=== PATIENT | female | born 1985 | race Caucasian/White ===

== ENCOUNTER 2024-06-05 14:25 | Emergency (ER) | payer BC, SELFPAY ==
--- NOTE | ~2024-06-05 | XR_ITS ---
3 VIEWS NASAL BONES Ordering provider: Kenzie Turner APRN History: . box fell onto face, RIGHT SIDE PAIN . Comparison: None. FINDINGS: No acute fracture. The nasal septum is midline. Soft tissues are normal. IMPRESSION: NO NASAL BONE FRACTURE. Reviewed, dictated and finalized at location A. ORDER EXPEDITER IMPRESSION: NO NASAL BONE FRACTURE.
[2024-06-05 14:35] VITALS: BP 133/81; PULSE 90; RESP 16; TEMP 37.1; O2SAT 100
--- NOTE | 2024-06-05 14:42 | ED_ITS ---
HPI - General Adult General Chief complaint: Wound/Laceration Stated complaint: Nose Injury Time Seen by Provider: 06/05/24 14:42 History of Present Illness HPI narrative: 39-year-old female presented for of nasal pain after injury 2 days ago. She states while at work large heavy box full of protein shakes fell directly onto her nose. She states pain and swelling is getting worse. Denies epistaxis or difficulty breathing. Has taken ibuprofen Related Data Home Medications ?Medication ?Instructions ?Recorded ?Confirmed ?Last Taken ?Type No Home Medications 06/05/24 Unknown History Allergies Allergy/AdvReac Type Severity Reaction Status Date / Time amoxicillin Allergy Unknown Unknown Verified 06/05/24 14:40 Review of Systems Review of Systems: CONSTITUTIONAL: Denies body aches, fever, chills, or sweats. EYES: Denies visual changes, bruising, swelling, redness, or discharge. ENT: Denies rhinorrhea, congestion, or epistaxis CARDIOVASCULAR: Denies chest pain, palpitations, or edema. RESPIRATORY: Denies dyspnea. GASTROINTESTINAL: Denies abdominal pain, nausea, vomiting, or diarrhea. SKIN: Denies wounds. MUSCULOSKELETAL: Denies back pain neck pain NEUROLOGIC: Denies headache Exam Narrative: GENERAL: well-appearing, no acute distress. EYES: conjunctivae clear ENT: Mucous membranes moist. Reports tenderness to nasal bridge with palpation. Nares clear, no apparent swelling or bruising, no epistaxis. TM pearly samuel with normal light reflex bilaterally; no tragal tenderness. Oropharynx erythematous without lesions. CHEST: Clear to auscultation, breath sounds equal. No respiratory distress, speaks in full sentences. HEART: Regular rate and rhythm. No murmur heard. SKIN: Warm, dry NEURO: Alert and oriented x3. Course Course Emergency Course: Patient is aware of diagnosis, understands and agrees to treatment plan. Anticipatory guidance given. Patient agrees to follow-up as directed and is aware of reasons to seek care at the emergency department. Portions of this record may have been created with voice recognition software Level of Care: Express Care Visit Vital Signs Vital signs: Vital Signs Temperature 98.8 F 06/05/24 14:35 Pulse Rate 90 06/05/24 14:35 Respiratory Rate 16 06/05/24 14:35 Blood Pressure 133/81 06/05/24 14:35 Pulse Oximetry 100 06/05/24 14:35 Oxygen Delivery Room Air 06/05/24 14:35 Temperature 98.8 F 06/05/24 14:35 Pulse Rate 90 06/05/24 14:35 Respiratory Rate 16 06/05/24 14:35 Blood Pressure 133/81 06/05/24 14:35 Pulse Oximetry 100 06/05/24 14:35 Oxygen Delivery Room Air 06/05/24 14:35 Medical Decision Making MDM Narrative Medical decision making narrative: Discussed physical exam findings and nasal xray. Advised supportive measures and signs/symptoms to go to the ER. Pt is appropriate for outpt treatment and f/u. Differential Diagnosis Differential Diagnosis: nasal fracture, contusion, abrasion Vital Signs Vital Signs: Vital Signs Temperature 98.8 F 06/05/24 14:35 Pulse Rate 90 06/05/24 14:35 Respiratory Rate 16 06/05/24 14:35 Blood Pressure 133/81 06/05/24 14:35 Pulse Oximetry 100 06/05/24 14:35 Oxygen Delivery Room Air 06/05/24 14:35 Temperature 98.8 F 06/05/24 14:35 Pulse Rate 90 06/05/24 14:35 Respiratory Rate 16 06/05/24 14:35 Blood Pressure 133/81 06/05/24 14:35 Pulse Oximetry 100 06/05/24 14:35 Oxygen Delivery Room Air 06/05/24 14:35 Discharge Plan Discharge Clinical Impression: Contusion of nose Patient Disposition: Home, Self-Care Condition: Stable Instructions: Nasal Fracture (ED) Additional Instructions: apply ice to bridge of nose for 10 minute intervals throughout the day Sleep using a humidifer Avoid trauma/nose blowing/sneezing Tylenol as needed for pain If you have a nosebleed: instill Afrin (oxymetazoline) at the onset of nosebleed then apply direct pressure to the bridge of the nose for 10 minutes (using c lamp if possible) leaning forward not tilting head backward Avoid NSAIDs (advil ibuprofen aleve motrin) Follow up with ENT, call tomorrow to schedule an appointment Follow up with your primary care provider in 1 week, call tomorrow to schedule an appointment Go to the ER for worsening symptoms or concerns Patient Language: Chinese Prescriptions: No Action No Home Medications Follow-up/Referrals: Fritz Prajapati MD [Physician] - PHYSICIAN,DIGESTER OPERATOR HELPER [Primary Care Provider] - Time of Disposition: 15:14
== END 2024-06-05 15:20 | disposition home or self-care (01) ==
PROVIDERS: Emergency Provider Nurse Practitioner Family
DX: S00.33XA Contusion of nose, initial encounter (principal); W22.8XXA Striking against or struck by other objects, initial encounter
CPT/HCPCS: 70160; 99203; G0463

== ENCOUNTER 2025-01-06 13:57 | Emergency (ER) | payer BC, SELFPAY ==
--- NOTE | 2025-01-06 14:02 | ED.FEMALEGU ---
HPI - Female Genitourinary General Chief complaint: Urogenital-Female Stated complaint: Urinary Problem Time Seen by Provider: 01/06/25 14:12 Source: patient and RN notes reviewed Mode of arrival: ambulatory Limitations: no limitations History of Present Illness HPI Narrative: 39-year-old female presents with concern for one-week history of lower abdominal discomfort urine frequency, urgency, hematuria. Reports a pressure in her lower abdomen when she needs to use the bathroom and low back ache. She denies fever, body aches, chills, sweats, nausea, vomiting. MD elicited complaint: UTI Related Data Allergies Allergy/AdvReac Type Severity Reaction Status Date / Time amoxicillin Allergy Unknown Unknown Verified 01/06/25 14:09 Review of Systems Review of Systems: CONSTITUTIONAL: Denies malaise, chills, sweats, or fever. CARDIOVASCULAR: Denies chest pain, palpitations, or edema. RESPIRATORY: Denies cough or dyspnea. GASTROINTESTINAL: Denies abdominal pain, nausea, vomiting, diarrhea GENITOURINARY: Reports dysuria, frequency, urgency, suprapubic pressure. Denies flank pain or hematuria. SKIN: Denies rash or itching. MUSCULOSKELETAL: Reports back discomfort. Denies myalgia. All systems reviewed & are unremarkable except as noted in HPI and below PMFSH Comments At time of signature, agree with nursing past medical, surgical, social and family history. There is no relevant family history pertinent to the presenting complaint Exam Narrative: GENERAL: Well-appearing, well-nourished, and in no acute distress. HEAD: Normocephalic. EYES: PERRLA, conjunctivae clear. NECK: Supple. No lymphadenopathy CHEST: Clear to auscultation. No respiratory distress. HEART: Regular rate and rhythm. ABDOMEN: Soft, nontender upon palpation, nondistended, no palpable or pulsatile masses, no guarding. No CVA tenderness SKIN: Warm, dry, no rash. NEURO: Alert and oriented x3. PSYCH: Normal mood and affect Course Course Emergency Course: Patient is aware of diagnosis, understands and agrees to treatment plan. Anticipatory guidance given. Patient agrees to follow-up as directed and is aware of reasons to seek care at the emergency department. Portions of this record may have been created with voice recognition software Level of Care: Express Care Visit Vital Signs Vital signs: Reviewed. MDM - Female Genitourinary MDM Narrative Medical decision making narrative: Exam findings and UA show no acute concerns or changes; patient is non-toxic appearing and is in no distress. Patient is appropriate for outpatient treatment and follow-up. Differential Diagnosis Differential diagnosis: Likely urinary tract infection and cystitis Critical Care Time Critical Care Time Critical Care Time: No Discharge Plan Discharge Clinical Impression: Symptoms of urinary tract infection Patient Disposition: Home Condition: Stable Instructions: Antibiotic Form, Urinary Tract Infection in Women (ED) Additional Instructions: We will send a urine culture to the lab; if the culture identifies an organism that the prescribed antibiotic will not treat, you will receive a phone call from an urgent care staff member and an appropriate antibiotic will be prescribed. -Your symptoms should begin to improve within a day of starting antibiotics. But you should finish all the antibiotic pills you get. Otherwise your infection might come back. -Also recommend: increase water intake. Tylenol/ibuprofen as needed for pain or fever -Follow-up with your primary care provider for urine recheck or seek ER visit if condition worsens with high fever, nausea, vomiting and severe back pain. Patient Language: Luxembourgish Prescriptions: New sulfamethoxazole-trimethoprim 800-160 mg tablet 1 tablet PO Q12H 7 Days Qty: 14 0RF Follow-up/Referrals: PHYSICIAN NOT ON STAFF,NONSTAFF [Primary Care Provider] - Time of Disposition: 14:21
[2025-01-06 14:03] VITALS: BP 140/77; PULSE 87; RESP 20; TEMP 37.1; O2SAT 100
--- OUTSIDE RECORDS SUMMARY | 2025-01-06 14:14 | XMS_ITS | Encounter Summary ---
Author Organization [facility] HealthCare Address [address] [facility] [place] [address] Phone Care Team Providers Care Voice Pathologist Name Role Phone Aliya Carina Rodriguez APRN, CNP Primary Care Provider [phone] Encounter Details Date Type Department Care Team (Late st Contact Info) Description 12/25/2024 Results Follow-Up [facility] [address] [place] [id number] Pina Blackmon APRN, CYBER ANALYST [address] [place] [address] PATHOLOGY SURGICAL Social History Tobacco Use Types Packs/Day Years Used Date Smoking Tobacco: Never Smokeless Tobacco: Never Comments:Second hand smoke Alcohol Use Standard Drinks/Week Comments Never 0 (1 standard drink = 0.6 oz pur e alcohol) PHQ-2 Answer Date Recorded Total Score - Questions 1-9 0 11/27 Social Connection and Isolation Panel Answer Date Recorded In a typical week, how many times do you talk on the phone with family, friends, or neighbors? More than three times a week 12/09/2024 How often do you get togethe r with friends or relatives? More than three times a week 12/09/2024 How often do you attend chur ch or amish services? Never 12/09/2024 Do you belong to any clubs o r organizations such as denominational groups, unions, fraternal or athletic groups, or school groups? Yes 12/09/2024 How often do you attend meet ings of the clubs or organizations you belong to? More than 4 times per year 12/09/2024 Are you , , di vorced, , never , or living with a partner? 12/09/2024 AUDIT-C Answer Date Recorded Q1: How often do you have a drink containing alcohol? Never 12/09/2024 Q2: How many drinks containi ng alcohol do you have on a typical day when you are drinking? Patient does not drink Q3: How often do you have si x or more drinks on one occasion? Never 12/09/2024 Overall Financial Resource Strain (CARDIA) Answe r Date Recorded How hard is it for you to pa y for the very basics like food, housing, medical care, and heating? Very hard 12/09/2024 [facility] - Occupational Stress Questionnaire Answer Date Recorded Do you feel stress - tense, restless, nervous, or anxious, or unable to sleep at night because your mind is troubled all the time - these days? Not at all 12/09/2024 Exercise Vital Sign Answer Date Recorde d On average, how many days pe r week do you engage in moderate to strenuous exercise (like a brisk walk)? 5 days On average, how many minutes do you engage in exercise at this level? Patient declined 12/09/2024 Hunger Vital Sign Answer Date Recorded Within the past 12 months, y ou worried that your food would run out before you got the money to buy more. Sometimes true Within the past 12 months, t he food you bought just didn't last and you didn't have money to get more. Never true PRAPARE - Transportation Answer Date Re corded In the past 12 months, has l ack of transportation kept you from medical appointments or from getting medications? No 11/26 In the past 12 months, has l ack of transportation kept you from meetings, work, or from getting things needed for daily living? No 12/09/2024 Housing Stability Vital Sign Answer Toni e Recorded In the last 12 months, was t here a time when you were not able to pay the mortgage or rent on time? Yes 12/09/2024 In the past 12 months, how m any times have you moved where you were living? 0 12/09/2024 At any time in the past [facility], were you homeless or living in a alf (including now)? No 12/09/2024 [facility] Utilities Answer Date Recorded In the past 12 months has e electric, gas, oil, or water company threatened to shut off services in your home? Yes 12/09/2024 Sexually Active Control Partners Comments Not Currently Abstinence Male Comments No Sex and Gender Information Value Date Recorded Sex Assigned at Not on file Legal Sex Female 10:27 PM CDT Gender Identity Not on file Sexual Orientation Not on file Occupation Industry Job Start Date Job End Date [employer] Not on file Not on file Not on file documented as of this encounter Plan of Treatment Upcoming Encounters Date Type Department Care Team (Late st Contact Info) Description 01/31/2025 9:00 AM CDT Office Visit [facility] - Obstetrics & Gynecology [facility] [address] [place] [address] Casandra Wetzel, KNOWLEDGE ARCHITECT, CYBER ANALYST [address] [place] [address] 02/13/2025 2:20 PM CDT Lab [facility] [address] [place] [phone] Discharge Disposition: Discharged to home or Selfcare 02/20/2025 2:00 PM CDT Initial Consult [facility] [address] [place] [address] Comfort Metz, REGAN [address] [place] [address] Discharge Disposition: Discharged to home or Selfcare 03/25/2025 3:00 PM CDT Office Visit [facility] Medical [facility] - Family Medicine [facility] [address] [place] [address] Charles Alvarado, KNOWLEDGE ARCHITECT, CYBER ANALYST [address] [facility] [address] [place] [address] documented as of this encounter Visit Diagnoses Not on filedocumented in this encounter Additional Health Concerns Assessment Noted Time PHQ-9 Depression Total Score: 0 12/17/19 2:42 PM CDT documented as of this encounter Care Teams Voice Pathologist Relationship Specialty Start Date End Date Aliya Carina Michael, KNOWLEDGE ARCHITECT, CYBER ANALYST 2 [facility] [place] [address] [address] PCP - General Advanced Practice Nurse 12/16/24 documented as of this encounter
--- OUTSIDE RECORDS SUMMARY | 2025-01-06 14:14 | XMS_ITS | Clinical Summary ---
Author Organization [facility] Address [address] [place] [address] Phone Care Team Providers Care Care Clinician Name Role Phone KimberlyCarina aparicio Michael RIOJAS CNP Primary Care Provider [phone] Allergies Active Allergy Reactions Criticality Noted Date Comments [place] Oil Hives,Itching,Swelli ng High 12/09/2024 Any almond anything Peanut oil Peanut anything also causing burning of her skin / blister in mouth Amoxicillin Rash,Swelling,Vomiti ng High 04/06/2019 Severe vomiting and throat swells Cashew Nut (Anacardium Occidentale) Skin Test Hives,Itching,Swelli ng High 12/09/2024 Peanut oil Peanut anything also causing burning of her skin / blister in mouth Cat Dander Runny Nose,Itching High 12/09/2024 Watery eyes Hazelnut (Filbert) Hives,Itching,Swelli ng High 12/09/2024 Hazelnut anything also causing burning of her skin / blister in mouth Peanut (Diagnostic) Hives,Itching,Swelli ng,Unknown High 04/12/2019 Peanut oil Peanut anything also causing burning of her skin / blister in mouth Peanut Oil Hives,Rash,Swelling High 04/12/2019 Peanut oil Peanut anything also causing burning of her skin / blister in mouth Juglans Hives,Rash,Itching High 12/09/2024 [place] anything also causing burning of her skin / blister in mouth Medications dicyclomine (BENTYL) 20 MG Tablet Take 1 Tablet by mouth every 6 hours. 30 Tablet 12/02/19 25 Active ondansetron (ZOFRAN-ODT) 4 MG TABLET DISPERSIBLE Take 1 Tablet by mouth every 8 hours as needed for Nausea - 1st line. 20 Tablet 12/02/19 25 Active methylPREDNISol one (MEDROL DOSPACK) 4 MG Tablet Therapy Pack Use as per instructions on package. 1 Tablet 12/27/19 25 Active albuterol (ProAir HFA) 108 (90 Base) MCG/ACT Aerosol SolutionIndicat ions:Cough take 2 Puffs by inhalation every 6 hours as needed for Wheezing. 1 Inhaler 02/07/20 20 025 Discontinu ed(Med List Clean Up) HYDROcodone-valery taminophen (NORCO) 5-325 MG TabletIndicatio ns:Dental abscess Take 1 Tab by mouth every 4 hours as needed for Mild or more severe pain. 12 Tab 06/25/19 21 025 Discontinu ed(Med List Clean Up) levoFLOXacin (LEVAQUIN) 500 MG Tablet Take 1 Tablet by mouth daily for 6 days. 6 Tablet 12/02/19 25 025 Active Problems Problem Noted Date Diagnosed Date Anemia 12/05/2024 Breast nodule 12/05/2024 Adrenal nodule 12/05/2024 Encounters Date Type Department Care Team Description 01/02/2025 2:00 PM CDT Clinical Support [facility] [address] [place] [phone] Pina Blackmon, ROOFING LABORER, EYE SPECIALIST Other iron deficiency anemia (Primary Dx) Discharge Disposition: Discharged to home or Selfcare 01/02/2025 Travel 12/30/2024 Telephone [facility] [address] [place] [phone] Pina Blackmon, BEULAH, EYE SPECIALIST 12/26/2024 1:00 PM CDT Clinical Support [facility] [address] [place] [phone] Pina Blackmon, ROOFING LABORER, EYE SPECIALIST Other iron deficiency anemia (Primary Dx) Discharge Disposition: Discharged to home or Selfcare 12/26/2024 11:45 AM CDT Office Visit [facility] [address] [place] [phone] Pina Blackmon, ROOFING LABORER, EYE SPECIALIST Other iron deficiency anemia (Primary Dx); Anemia, unspecified type Discharge Disposition: Discharged to home or Selfcare 12/26/2024 Travel 12/25/2024 Results Follow-Up [facility] [address] [place] [phone] Pina Blackmon, ROOFING LABORER, EYE SPECIALIST PATHOLOGY SURGICAL 12/25/2024 Telephone [facility] [address] [place] [phone] Tierra Carlos RN 12/19/2024 11:30 AM CDT Clinical Support [facility] [address] [place] [phone] Pina Blackmon, ROOFING LABORER, EYE SPECIALIST Other iron deficiency anemia (Primary Dx) Discharge Disposition: Discharged to home or Selfcare 12/19/2024 Documentation Only [facility] [address] [place] [phone] Tierra Carlos RN 12/19/2024 Travel 12/19/2024 Telephone [facility] [address] [place] [phone] Pina Blackmon APRN, EYE SPECIALIST 12/18/2024 Telephone [facility] [address] [place] [phone] Tierra Carlos RN 12/18/2024 Results Follow-Up [facility] Medical [facility] [address] [place] [address] Carina Pisano, ROOFING LABORER, EYE SPECIALIST THYROXINE (T4) FREE, TRIIODOTHYRININE (T3) FREE, LIPID PANEL, Additional followed-up results: 4 12/17/2024 Results Follow-Up [facility] [address] [place] [phone] Pina Blackmon APRN, DANILO MRI ABDOMEN W/O CONTRAST 12/17/2024 Telephone [facility] [address] [place] [phone] Pina Blackmon APRN, DANILO 12/16/2024 3:56 PM CDT - 12/16/2024 11:59 PM CDT Hospital Encounter [facility] MRI [address] [place] [phone] Pina Blackmon APRN, EYE SPECIALIST Discharge Disposition: Discharged to home or Selfcare 12/16/2024 2:30 PM CDT Office Visit [facility] Medical Group - Family [facility] [address] [place] [phone] Carina iPsano, BEULAH, EYE SPECIALIST Encounter for preventative adult health care exam with abnormal findings (Primary Dx); Colitis; Menorrhagia with irregular cycle; Iron deficiency anemia, unspecified iron deficiency anemia type; Allergy, initial encounter Discharge Disposition: Discharged to home or Selfcare 12/16/2024 Telephone [facility] [address] [place] [phone] Pina Blackmon APRN, DANILO 12/16/2024 Telephone [facility] Outpatient [address] [facility] [place] [address] Pina Blackmon APRN, EYE SPECIALIST Prior Authorization (/) 12/16/2024 Travel 12/12/2024 2:00 PM CDT Clinical Support [facility] [address] [place] [phone] Pina Blackmon APRN, DANILO Other iron deficiency anemia (Primary Dx) Discharge Disposition: Discharged to home or Selfcare 12/12/2024 Travel 12/09/2024 Telephone [facility] [address] [place] [phone] Tierra Carlos RN 12/09/2024 Telephone [facility] [address] [place] [phone] Oehl, August, ROOFING LABORER, EYE SPECIALIST 12/09/2024 [facility]phone [facility] [place] [phone] Oehl, August N, ROOFING LABORER, EYE SPECIALIST 12/06/2024 Telephone [facility] [address] [place] [phone] Tierra Carlos RN 12/05/2024 2:45 PM CDT Office Visit [facility] [address] [place] [phone] Pina Blackmon APRN, DANILO Breast nodule (Primary Dx); Adrenal nodule (HCC); Anemia, unspecified type Discharge Disposition: Discharged to home or Selfcare 12/05/2024 1:30 PM CDT Clinical Support [facility] [address] [place] [phone] Pina Blackmon APRN, DANILO Anemia, unspecified type Discharge Disposition: Discharged to home or Selfcare 12/05/2024 Transcribe Orders [facility] [address] [place] [address] [place] [address] Pina Blackmon APRN, DANILO Adrenal nodule (HCC) (Primary Dx) 12/05/2024 Results Follow-Up [facility] [address] [place] [phone] Pina Blackmon, ROOFING LABORER, EYE SPECIALIST IRON,TRANSFERN,CALC.TIB C,%SAT, FERRITIN, VITAMIN B12, FOLIC ACID (FOLATE) 12/05/2024 Travel 12/03/2024 Telephone [facility] [address] [place] [phone] Tierra Carlos RN 12/01/2024 6:27 PM CDT - 12/01/2024 10:31 PM CDT Emergency [facility] Emergency [address] [place] [phone] Jovanny Moulton DO Diarrhea Discharge Disposition: Discharged to home or Selfcare 12/01/2024 Travel from Last 3 Months Family History Medical History Relation Name Comments No Known Problems Brother Asthma Father Suhas Depression Father Suhas Heart Attack Father Suhas Age 50. Angina Heart Disease Father Suhas High Cholesterol Father Suhas Hypertension Father Suhas Rashes/Skin Problems Father Suhas Eczema Scoliosis Father Suhas Stroke Father Suhas Congestive Heart Failure Maternal Grandmother Laxmi Anemia Mother Carmen Breast Cancer Mother Carmen Cancer Mother Carmen Her2+ Diabetes Mother Carmen Rashes/Skin Problems Mother Carmen Eczema Heart Attack Paternal Grandfather Ran Age 50 Seizures Sister Ariella Relation Name Status Comments Brother Alive Father Suhas Alive Maternal Grandmother Laxmi Alive Mother Carmen Alive Paternal Grandfather Ran Alive Sister Ariella Alive Social History Tobacco Use Types Packs/Day Years Used Date Smoking Tobacco: Never Smokeless Tobacco: Never Tobacco Cessation:Counseling Given: Not Answered Comments:Second hand smoke Alcohol Use Standard Drinks/Week [...] week 12/09/2024 How often do you attend [facility] or latter-day services? Never 12/09/2024 Do you belong to any clubs o r organizations such as taoism groups, unions, fraternal or athletic groups, or [...] medical care, and heating? Very hard 12/09/2024 [facility] - Occup[facility] Stress [...] any time in the past 12 m [facility], were you homeless or living in a fpc (including now)? No 12/09/2024 [facility] Utilities Answer Date Recorded In the past 12 months has th e electric, gas, oil, or water company [...] file Not on file Not on file Last Filed Vital Signs Vital Sign Reading Time Taken Comments Blood Pressure 125/74 01/02/2025 2:10 PM CDT Pulse 89 01/02/2025 2:10 PM CDT Temperature 36.8 C (98.2 F) 01/02/2025 2:10 PM CDT Respiratory Rate 16 01/02/2025 2:10 PM CDT Oxygen Saturation 98% 01/02/2025 2:10 PM CDT Inhaled Oxygen Concentration - - Weight 65.6 kg (144 lb 9.6 oz) 12/16/2024 2:42 P M CDT Height 144.8 cm (4' 9) 12/26/2024 12:47 PM CDT Body Mass Index 31.29 12/16/2024 2:42 PM CDT Plan of Treatment Upcoming Encounters Date Type Department Care Team (Late st Contact Info) Description 01/31/2025 9:00 AM CDT Office Visit [facility] Medical Group - Obstetrics & Gynecology [facility] [address] [place] [phone] Casandra Wetzel, ROOFING LABORER, EYE SPECIALIST [address] [place] [address] 02/13/2025 2:20 PM CDT [facility] [place] [address] [place] [phone] Discharge Disposition: Discharged to home or Selfcare 02/20/2025 2:00 PM CDT Initial Consult [facility] [address] [place] [phone] Comfort Metz, PAC [address] [place] [address] Discharge Disposition: Discharged to home or Selfcare 03/25/2025 3:00 PM CDT Office Visit [facility] Medical Group - [facility] [address] [place] [address] Charles Alvarado APRN, EYE SPECIALIST [address] [address] Health Maintenance Due Date Last Done Comments Hepatitis C Virus (HCV) Screening 1985 TdaP Immunization 1985 Hepatitis B Immunization (1 of 3 - 19+ 3-dose series) 2004 Pap Smear 2006 Human Papillomavirus (HPV) Immunization (1 - 3-dose SCDM series) 2012 Cervical Cancer Screening (CCS) 2015 HPV/Cotest 2015 SARS-COV-2 Immunization ( season) 2024 Influenza Immunization (#1) 2025 Respiratory Syncytial Virus (RSV) Immunization (Adult) (1 - 1-dose 75+ series) 2060 Meningococcal Immunization (ACWY) Aged Out No longer eligible based on patient's age to complete this topic Pneumococcal Immunization Combined Aged Out No longer eligible based on patient's age to complete this topic Rotavirus Immunization Aged Out No lo nger eligible based on patient's age to complete this topic Procedures Procedure Name Priority Date/Time Associated Diagnosis Comments PATHOLOGY SURGICAL 12/23/2024 12:00 AM CDT BENITO US GUIDANCE AND CORE BREAST BIOPSY RIGHT Routine 12/23/2024 12:00 AM CDT Breast nodule MAMMOGRAM UNILATERAL GENERIC 12/23/2024 12:00 AM CDT [facility] DIAG BILATERAL DIGITAL W CAD W NIKITA Routine 12/17/2024 12:00 AM CDT Breast nodule US - CHEST 12/17/2024 12:00 AM CDT CBC WITH AUTO DIFFERENTIAL Routine 12/16/2024 4:26 PM CDT Encounter for preventative adult health care exam with abnormal findings THYROID SCREEN WITH REFLEX Routine 12/16/2024 4:26 PM CDT Encounter for preventative adult health care exam with abnormal findings VITAMIN D, 25 HYDROXY TOTAL Routine 12/16/2024 4:26 PM CDT Encounter for preventative adult health care exam with abnormal findings COMPLETE BLOOD COUNT (CBC) WITH DIFF Routine 12/16/2024 4:26 PM CDT Encounter for preventative adult health care exam with abnormal findings CMP (COMPREHENSIVE METABOLIC PANEL) Routine 12/16/2024 4:26 PM CDT Encounter for preventative adult health care exam with abnormal findings LIPID PANEL Routine 12/16/2024 4:26 PM CDT Encounter for preventative adult health care exam with abnormal findings TRIIODOTHYRININE (T3) FREE Routine 12/16/2024 4:26 PM CDT Encounter for preventative adult health care exam with abnormal findings THYROXINE (T4) FREE Routine 12/16/2024 4:26 PM CDT Encounter for preventative adult health care exam with abnormal findings THYROID SCREEN WITH REFLEX Routine 12/16/2024 4:26 PM CDT Encounter for preventative adult health care exam with abnormal findings MRI ABDOMEN W/O CONTRAST Routine 12/16/2024 4:19 PM CDT Adrenal nodule (HCC) UR TEST QUAL Routine 12/16/2024 3:44 PM CDT Adrenal nodule (HCC) FOLIC ACID (FOLATE) Routine 12/05/2024 3:49 PM CDT Anemia, unspecified type FERRITIN Routine 12/05/2024 3:49 PM CDT Anemia, unspecified type VITAMIN B12 Routine 12/05/2024 3:49 PM CDT Anemia, unspecified type IRON,TRANSFERN,CALC.T IBC,%SAT Routine 12/05/2024 3:49 PM CDT Anemia, unspecified type CT ABDOMEN PELVIS W/ CONTRAST Stat with Interpretation 12/01/2024 8:39 PM CDT URINALYSIS REFLEX IF INDICATED BY ABNORMAL RESULTS STAT 12/01/2024 6:58 PM CDT HUMAN CHORIONIC GONADOTROPIN SCRN SERUM STAT 12/01/2024 6:58 PM CDT RSV,SARS-COV-2,INFLUE NZA A&B BY PCR STAT 12/01/2024 6:30 PM CDT CBC WITH AUTO DIFFERENTIAL STAT 12/01/2024 6:25 PM CDT LIPASE STAT 12/01/2024 6:25 PM CDT COMPLETE BLOOD COUNT (CBC) WITH DIFF STAT 12/01/2024 6:25 PM CDT CMP (COMPREHENSIVE METABOLIC PANEL) STAT 12/01/2024 6:25 PM CDT from Last 3 Months Results * MAMMOGRAM UNILATERAL GENERIC (12/23/2024 12:00 AM CDT) 12/23/2024 us Pina Blackmon ROOFING LABORER, EYE SPECIALIST IMG MAMMO ORDERABLES F inal Result SCAN * PATHOLOGY SURGICAL (12/23/2024 12:00 AM CDT) 12/23/2024 Result [facility] us Pina Blackmon APRN, CNP PATHOLOGY/CYTOLOGY ORD ERABLES Final Result Performing Organization Address [facility] Co de Phone Number SCAN * [facility] US GUIDANCE AND CORE BREAST BIOPSY RIGHT (12/23/2024 12:00 AM CDT) Anatomical Region Laterality Modality breast Right Ultrasound 12/23/2024 Result Mary Pina Blackmon APRN, CNP IMG MAMMO ORDERABLES F inal Result * US - CHEST (12/17/2024 12:00 AM CDT) 12/17/2024 Result Mary Pina Blackmon APRN, CNP IMG US ORDERABLES Jackelin l Result Performing Organization Address [facility] Co de Phone Number SCAN * [facility] DIAG BILATERAL DIGITAL W CAD W NIKITA (12/17/2024 12:00 AM CDT) Anatomical Region Laterality Modality breast Bilateral Mammography 12/17/2024 Result [facility] Pina Blackmon APRN, CNP IMG MAMMO ORDERABLES F inal Result * VITAMIN D, 25 HYDROXY TOTAL (12/16/2024 4:26 PM CDT) VITAMIN D, 25 HYDROX 22.4 ng/mL 12/16/2024 5:15 PM CDT [facility] Blood Venipuncture / Unknown 12/16/2024 4:26 PM CDT 12/16/2024 4:30 PM CDT Narrative [facility] - 12/16/2024 5:15 PM CDT Published reference ranges for Vitamin D vary depending on time and place and method of testing, and on patient's age, sex, ethnicity and levels of other measured analytes such as parathormone, calcium and phosphorus. The result should be evaluated in conjunction with clinical findings and suspicions. [facility] Clinical Practice Guidelines: Status Vitamin D levels (ng/mL) Deficient <=20 At risk of inadequacy 21-29 Sufficient 30-100 Centers of Disease Control and Prevention Guidelines: Status Vitamin D levels (ng/mL) Deficient <13 At risk of inadequacy 13-19 Sufficient 20-50 Possibly harmful >50 References: [facility] [employer] [facility], 2010 Dietary reference intakes for calcium and vitamin D. [place]: The National Academies Press. Alessio M, Carlota N, Dre JACKMAN, et al., Evaluation, treatment, and prevention of Vitamin D deficiency: an Endocrinology Clinical Practice Guideline. JCEM 2011 96: 7 3493-4385. Garth A, Basil C, Samuel D, et al., Vitamin D Status: [place], 5376-2697, [facility] data brief, no. 59, [place]: [facility] Ed for Health Statistics. 2011. August N Aliya RIOJAS, EYE SPECIALIST CHEMISTRY ORDERABLES Jackelin l Result Performing Organization Address City/[facility]/ZIP Co de Phone Number [facility] [address] [place] [address] * THYROID SCREEN WITH REFLEX (12/16/2024 4:26 PM CDT) TSH 1.022 0.300 - 5.000 mIU/L 12/16/2024 5:13 PM CDT [facility] Blood Venipuncture / Unknown 12/16/2024 4:26 PM CDT 12/16/2024 4:29 PM CDT August Aliya MENDOZAN, EYE SPECIALIST CHEMISTRY ORDERABLES Jackelin l Result Performing Organization Address City/[facility]/ZIP Co de Phone Number [facility] [address] [place] [address] * (ABNORMAL) CBC WITH AUTO DIFFERENTIAL (12/16/2024 4:26 PM CDT) Only the most recent of2 resultswithin the time period is included. WBC 9.15 4.00 - 12.00 10(3)/mcL 12/16/2024 5:34 PM CDT [facility] RBC 4.80 3.80 - 5.30 10(6)/mcL 12/16/2024 5:34 PM CDT [facility] HEMOGLOBIN (HGB) 8.9(L) 12.0 - 15.8 g/dL 12/16/2024 5:34 PM CDT [facility] HEMATOCRIT (HCT) 32.7(L) 36.0 - 47.0 % 12/16/2024 5:34 PM CDT [facility] MCV 68.1(L) 82.0 - 96.0 fL 12/16/2024 5:34 PM CDT [facility] MCH 18.5(L) 26.0 - 34.0 pg 12/16/2024 5:34 PM CDT [facility] MCHC 27.2(L) 31.0 - 36.0 g/dL 12/16/2024 5:34 PM CDT [facility] PLATELET COUNT 347 140 - 440 10(3)/[facility] 12/16/2024 5:34 PM CDT [facility] RDW 22.7(H) 11.8 - 15.5 % 12/16/2024 5:34 PM CDT [facility] MPV 10.9 9.7 - 12.4 fL 12/16/2024 5:34 PM CDT [facility] NEUTROPHILS 73.4(H) 47.0 - 73.0 % 12/16/2024 5:34 PM CDT [facility] LYMPHOCYTES 18.3 18.0 - 42.0 % 12/16/2024 5:34 PM CDT [facility] MONOCYTES 5.9 4.0 - 12.0 % 12/16/2024 5:34 PM CDT [facility] EOSINOPHILS 1.7 0.0 - 5.0 % 12/16/2024 5:34 PM CDT [facility] BASOPHILS 0.4 0.0 - 1.0 % 12/16/2024 5:34 PM CDT [facility] IMMATURE GRANULOCYTE 0.3 0.0 - 0.4 % 12/16/2024 5:34 PM CDT [facility] Comment:Immature Granulocyte s includes Metamyelocytes, Myelocytes, and Promyelocytes. ABSOLUTE NEUTROPHILS 6.71 1.60 - 7.70 10(3)/mcL 12/16/2024 5:34 PM CDT [facility] ABSOLUTE LYMPHOCYTES 1.67 1.30 - 3.20 10(3)/mcL 12/16/2024 5:34 PM CDT [facility] ABSOLUTE MONOCYTES 0.54 0.20 - 1.00 10(3)/mcL 12/16/2024 5:34 PM CDT [facility] ABSOLUTE EOSINOPHIL 0.16 0.00 - 0.40 10(3)/mcL 12/16/2024 5:34 PM CDT [facility] ABSOLUTE BASOPHILS 0.04 0.00 - 0.10 10(3)/mcL 12/16/2024 5:34 PM CDT [facility] ABSOLUTE IMMATURE GRANULOCYTE 0.03 0.00 - 0.03 10 (3) mcL. 12/16/2024 5:34 PM CDT [facility] NRBC PER 100 WBC 0 12/17/19 25 5:34 PM CDT [facility] RESULTS ARE CONSISTENT WITH PERIPHERAL SMEAR REVIEW Yes 12/16/2024 5:34 PM CDT [facility] RBC MORPHOLOGY CONSISTENT WITH INDICES Yes 12/16/2024 5:34 PM CDT [facility] Blood Venipuncture / Unknown 12/16/2024 4:26 PM CDT 12/16/2024 4:30 PM CDT us August N Oehl ROOFING LABORER, EYE SPECIALIST HEMATOLOGY ORDERABLES Fin al Result [facility] [address] [place] [address] * THYROXINE (T4) FREE (12/16/2024 4:26 PM CDT) T4 FREE 0.9 0.7 - 1.9 ng/dL 12/16/2024 5:22 PM CDT [facility] Blood Venipuncture / Unknown 12/16/2024 4:26 PM CDT 12/16/2024 4:29 PM CDT august N Aliya RIOJAS, EYE SPECIALIST CHEMISTRY ORDERABLES Jackelin l Result [facility] [address] [place] [address] * TRIIODOTHYRININE (T3) FREE (12/16/2024 4:26 PM CDT) FREE T3 2.9 1.6 - 3.9 pg/mL 12/16/2024 9:50 PM CDT [facility] Blood Venipuncture / Unknown 12/16/2024 4:26 PM CDT 12/16/2024 4:30 PM CDT august N Aliya RIOJAS, EYE SPECIALIST CHEMISTRY ORDERABLES Jackelin l Result [facility] [address] [place] [place] [address], [place] * (ABNORMAL) LIPID PANEL (12/16/2024 4:26 PM CDT) CHOLESTEROL 210(H) <200 mg/dL 12/16/2024 4:59 PM CDT [facility] TRIGLYCERIDES 122 <150 mg/dL 12/16/2024 4:59 PM CDT [facility] HDL CHOLESTEROL 44 >40 mg/dL 4:59 PM CDT [facility] LDL 142(H) <130 mg/dL 12/16/2024 4:59 PM CDT [facility] VLDL 24 10 - 50 mg/dL 12/16/2024 4:59 PM CDT [facility] CHOL/HDL RATIO 4.8(H) 0.0 - 4.4 12/16/2024 4:59 PM CDT [facility] NON-HDL CHOLESTEROL 166(H) <130 mg/dL 12/16/2024 4:59 PM CDT [facility] IS THE PATIENT REQUIRED TO BE FASTING? Yes 12/16/2024 4:59 PM CDT [facility] HAS THE PATIENT BEEN FASTING? Yes 12/16/2024 4:59 PM CDT [facility] Blood Venipuncture / Unknown 12/16/2024 4:26 PM CDT 12/16/2024 4:29 PM CDT august N Aliya MENDOZAN, EYE SPECIALIST CHEMISTRY ORDERABLES Jackelin l Result [facility] [address] [place] [address] * CMP (COMPREHENSIVE METABOLIC PANEL) (12/16/2024 4:26 PM CDT) Only the most recent of2 resultswithin the time period is included. SODIUM 140 136 - 145 mmol/L 12/16/2024 4:59 PM CDT [facility] POTASSIUM 4.2 3.5 - 5.1 mmol/L 12/16/2024 4:59 PM CDT [facility] CHLORIDE 106 98 - 107 mmol/L 12/16/2024 4:59 PM CDT [facility] CO2, VENOUS 26 22 - 30 mmol/L 12/16/2024 4:59 PM CDT [facility] ANION GAP 12.2 <18.0 mmol/L 12/16/2024 4:59 PM CDT [facility] GLUCOSE 80 70 - 99 mg/dL 12/16/2024 4:59 PM CDT [facility] BUN 12 5 - 18 mg/dL 12/16/2024 4:59 PM CDT [facility] CREATININE, BLOOD 0.73 0.60 - 1.00 mg/dL 12/16/2024 4:59 PM CDT [facility] BUN/CREATININE RATIO 16 12 - 20 ratio 12/16/2024 4:59 PM CDT [facility] TOTAL PROTEIN 7.5 6.0 - 8.0 g/dL 12/16/2024 4:59 PM CDT [facility] ALBUMIN 4.4 3.5 - 5.0 g/dL 12/16/2024 4:59 PM CDT [facility] A/G RATIO 1.4 1.0 - 2.2 12/16/2024 4:59 PM CDT [facility] CALCIUM 9.4 8.7 - 10.5 mg/dL 12/16/2024 4:59 PM CDT [facility] T BILI 0.6 0.2 - 1.2 mg/dL 12/16/2024 4:59 PM CDT [facility] SGOT (AST) 18 <43 U/L 12/16/2024 4:59 PM CDT [facility] SGPT (ALT) 13 <56 U/L 12/16/2024 4:59 PM CDT [facility] ALKALINE PHOSPHATASE 69 40 - 150 U/L 12/16/2024 4:59 PM CDT [facility] IS THE PATIENT REQUIRED TO BE FASTING? No 12/16/2024 4:59 PM CDT [facility] GFR, ESTIMATED >60 >=60 12/16/2024 4:59 PM CDT [facility] Comment: Creatinine Clearance is the preferred criteria for selecting drug dose adjustments in renally impaired patients. The GFR is provided as additional pertinent clinical information. GFR is reported in mL/min/1.73 sq m. Calculation based on the Chronic Kidney Disease Epidemiology Collaboration (CKD- EPI) equation refit without adjustment for race. GFR, EST. >60 >=60 025 4:59 PM CDT [facility] GFR, EST. NONAFRICAN >60 >=60 12/16/2024 4:59 PM CDT [facility] Blood Venipuncture / Unknown 12/16/2024 4:26 PM CDT 12/16/2024 4:29 PM CDT us August N Oehl ROOFING LABORER, EYE SPECIALIST CHEMISTRY ORDERABLES Jackelin l Result [facility] [address] [place] [address] * MRI ABDOMEN W/O CONTRAST (12/16/2024 4:19 PM CDT) Anatomical Region Laterality Modality Abdomen N/A Magnetic Resonan ce 12/17/2024 5:14 PM CDT Impressions 12/17/2024 5:17 PM CDT IMPRESSION: 1.5 cm right adrenal gland nodule is consistent with a benign adenoma. Narrative 12/17/2024 5:17 PM CDT EXAM DESCRIPTION: MRI ABDOMEN W/O CONTRAST REASON FOR STUDY: Adrenal nodule TECHNIQUE: MRI of the abdomen performed without intravenous contrast according to the adrenal protocol. All images stored on PACS. COMPARISON: CT abdomen and pelvis 12/01/2024 FINDINGS: RIGHT ADRENAL: 1.5 x 0.9 cm right adrenal nodule. This nodule demonstrates diffuse signal dropout on T1 opposed phase imaging. LEFT ADRENAL: No nodule. LOWER CHEST: No effusion in the lower chest. LIVER: Normal size. GALLBLADDER: No stones, wall thickening or pericholecystic fluid BILE DUCTS: No intrahepatic or extrahepatic ductal dilatation. SPLEEN: Normal size. PANCREAS: The main pancreatic duct is normal in caliber. No peripancreatic inflammation or fluid collection. KIDNEYS/URINARY TRACT: No hydronephrosis. GI: No visualized abnormality. PERITONEUM: No ascites. RETROPERITONEUM: No mass or adenopathy. VASCULATURE: No abdominal aortic aneurysm. MUSCULOSKELETAL: No acute findings OTHER: No significant abnormality. THIS IS AN ELECTRONICALLY VERIFIED FINAL REPORT 12/17/2024 5:14 PM - Electronically signed by Suresh NguyễnD. KR: ARTI Report ID: [id number] Reading Location: [id number] Procedure Note Suresh Shankar MD - 12/17/2024 EXAM DESCRIPTION: MRI ABDOMEN W/O CONTRAST REASON FOR STUDY: Adrenal nodule TECHNIQUE: MRI of the abdomen performed without intravenous contrast according to the adrenal protocol. All images stored on PACS. COMPARISON: CT abdomen and pelvis 12/01/2024 FINDINGS: RIGHT ADRENAL: 1.5 x 0.9 cm right adrenal nodule. This nodule demonstrates diffuse signal dropout on T1 opposed phase imaging. LEFT ADRENAL: No nodule. LOWER CHEST: No effusion in the lower chest. LIVER: Normal size. GALLBLADDER: No stones, wall thickening or pericholecystic fluid BILE DUCTS: No intrahepatic or extrahepatic ductal dilatation. SPLEEN: Normal size. PANCREAS: The main pancreatic duct is normal in caliber. No peripancreatic inflammation or fluid collection. KIDNEYS/URINARY TRACT: No hydronephrosis. GI: No visualized abnormality. PERITONEUM: No ascites. RETROPERITONEUM: No mass or adenopathy. VASCULATURE: No abdominal aortic aneurysm. MUSCULOSKELETAL: No acute findings OTHER: No significant abnormality. THIS IS AN ELECTRONICALLY VERIFIED FINAL REPORT 12/17/2024 5:14 PM - Electronically signed by Suresh Shankar M.D. KR: ARTI Report ID: [id number] Reading Location: [id number] IMPRESSION: 1.5 cm right adrenal gland nodule is consistent with a benign adenoma. us Pina Blackmon ROOFING LABORER, EYE SPECIALIST IMG MR ORDERABLES Jackelin l Result * UR TEST QUAL (12/16/2024 3:44 PM CDT) PREG TEST,MONOCLONA L Negative 12/16/2024 4:02 PM CDT [facility] Urine Non-Phlebotomy Collection / Unknown 12/16/2024 3:44 PM CDT 12/16/2024 4:01 PM CDT us Pina Blackmon APRN, EYE SPECIALIST URINE ORDERABLES Final Result Performing Organization Address City/[facility]/ZIP Co de Phone Number [facility] [address] [place] [address] * (ABNORMAL) IRON,TRANSFERN,CALC.TIBC,%SAT (12/05/2024 3:49 PM CDT) IRON 17(L) 25 - 156 mcg/dL 12/05/2024 4:15 PM CDT [facility] TRANSFERRIN 333 180 - 382 mg/dL 12/05/2024 4:15 PM CDT [facility] TIBC, CALCULATED 416 265 - 497 mcg/dL 12/05/2024 4:15 PM CDT [facility] % SATURATION * 4(L) 15 - 62 % 12/05/2024 4:15 PM CDT [facility] Blood Venipuncture / Unknown 12/05/2024 3:49 PM CDT 12/05/2024 3:49 PM CDT us Pina Blackmon APRN, EYE SPECIALIST CHEMISTRY ORDERABLES F inal Result Performing Organization Address [facility] Co de Phone Number [facility] [address] [place] [address] * VITAMIN B12 (12/05/2024 3:49 PM CDT) VITAMIN B12 580 213 - 816 pg/mL 12/05/2024 4:48 PM CDT [facility] Blood Venipuncture / Unknown 12/05/2024 3:49 PM CDT 12/05/2024 3:49 PM CDT us Pina Blackmon APRN, EYE SPECIALIST CHEMISTRY ORDERABLES F inal Result Performing Organization Address City/[facility]/ZIP Co de Phone Number [facility] [address] [place] [address] * FOLIC ACID (FOLATE) (12/05/2024 3:49 PM CDT) FOLATE 12.4 7.0 - 31.4 ng/mL 12/05/2024 4:48 PM CDT [facility] IS THE PATIENT REQUIRED TO BE FASTING? No 12/05/2024 4:48 PM CDT [facility] Blood Venipuncture / Unknown 12/05/2024 3:49 PM CDT 12/05/2024 3:49 PM CDT us Pina Blackmon APRN, EYE SPECIALIST CHEMISTRY ORDERABLES F inal Result Performing Organization Address City/[facility]/ZIP Co de Phone Number [facility] [address] [place] [address] * FERRITIN (12/05/2024 3:49 PM CDT) Pathologist [facility] FERRITIN 21 5 - 204 ng/mL 12/05/2024 4:33 PM CDT [facility] Blood Venipuncture / Unknown 12/05/2024 3:49 PM CDT 12/05/2024 3:49 PM CDT us Pina Blackmon APRN, EYE SPECIALIST CHEMISTRY ORDERABLES F inal Result Performing Organization Address City/[facility]/ZIP Co de Phone Number [facility] [address] [place] [address] * CT ABDOMEN PELVIS W/ CONTRAST (12/01/2024 8:39 PM CDT) Anatomical Region Laterality Modality Abdomen N/A Computed Tomogra phy 12/01/2024 9:50 PM CDT Impressions 12/01/2024 9:52 PM CDT IMPRESSION: 1. Moderate thickening/inflammation of the ascending and transverse colon is evidence for colitis. No abscess or other complication is seen. 2. 1.6 cm right adrenal nodule is indeterminate. This is of doubtful clinical significance given patient age but dedicated CT or MRI adrenal mass protocol could be considered. 3. Questionable 1.5 cm nodule in the right mid breast, top image. Correlation with mammography or ultrasound could be considered. Narrative 12/01/2024 9:52 PM CDT EXAM DESCRIPTION: CT ABDOMEN PELVIS W/ CONTRAST REASON FOR STUDY: abdominal pain, vomiting, diarrhea, and fever x4 days. H/o GERD, Hiatal hernia TECHNIQUE: CT scan of the abdomen and pelvis performed with intravenous and without oral contrast using helical scanning technique with dynamic intravenous contrast injection. Reconstructed coronal and sagittal MPR images reviewed. All images stored on PACS. Automated exposure control was used as a dose optimization technique for this examination. CONTRAST TYPE/DOSE: 100mL of IOPAMIDOL 76 % IV SOLN injected via Intravenous COMPARISON: None FINDINGS: LOWER CHEST: Small right base granuloma. Lung bases otherwise clear. Heart size normal. LIVER/BILIARY: Mild hepatic steatosis. Focal fat along the fissure. Biliary tree normal in caliber. GALLBLADDER: Normal. SPLEEN: Normal. PANCREAS: Normal. ADRENAL GLANDS: 1.6 cm right adnexal nodule measures 70 Hounsfield units. KIDNEYS/URINARY TRACT: Unremarkable. GI: Stomach and small bowel appear normal. Moderate thickening/inflammation of the ascending and transverse colon. Appendix not seen. OTHER ABDOMINAL/PELVIS: Major vascular structures are grossly patent and normal in caliber. No enlarged lymph node. Trace free fluid. MSK: Moderate L5-S1 disc disease. BODY WALL: Questionable nodule in the right mid breast, 1.5 cm, top image. THIS IS AN ELECTRONICALLY VERIFIED FINAL REPORT 12/01/2024 9:50 PM - Electronically signed by Devon Hu M.D. AR: MANNY Report ID: [id number] Reading Location: [id number] Procedure Note Devon Hu MD - 12/01/2024 EXAM DESCRIPTION: CT ABDOMEN PELVIS W/ CONTRAST REASON FOR STUDY: abdominal pain, vomiting, diarrhea, and fever x4 days. H/o GERD, Hiatal hernia TECHNIQUE: CT scan of the abdomen and pelvis performed with intravenous and without oral contrast using helical scanning technique with dynamic intravenous contrast injection. Reconstructed coronal and sagittal MPR images reviewed. All images stored on PACS. Automated exposure control was used as a dose optimization technique for this examination. CONTRAST TYPE/DOSE: 100mL of IOPAMIDOL 76 % IV SOLN injected via Intravenous COMPARISON: None FINDINGS: LOWER CHEST: Small right base granuloma. Lung bases otherwise clear. Heart size normal. LIVER/BILIARY: Mild hepatic steatosis. Focal fat along the fissure. Biliary tree normal in caliber. GALLBLADDER: Normal. SPLEEN: Normal. PANCREAS: Normal. ADRENAL GLANDS: 1.6 cm right adnexal nodule measures 70 Hounsfield units. KIDNEYS/URINARY TRACT: Unremarkable. GI: Stomach and small bowel appear normal. Moderate thickening/inflammation of the ascending and transverse colon. Appendix not seen. OTHER ABDOMINAL/PELVIS: Major vascular structures are grossly patent and normal in caliber. No enlarged lymph node. Trace free fluid. MSK: Moderate L5-S1 disc disease. BODY WALL: Questionable nodule in the right mid breast, 1.5 cm, top image. THIS IS AN ELECTRONICALLY VERIFIED FINAL REPORT 12/01/2024 9:50 PM - Electronically signed by Devon Hu M.D. AR: MANNY Report ID: [id number] Reading Location: [id number] IMPRESSION: 1. Moderate thickening/inflammation of the ascending and transverse colon is evidence for colitis. No abscess or other complication is seen. 2. 1.6 cm right adrenal nodule is indeterminate. This is of doubtful clinical significance given patient age but dedicated CT or MRI adrenal mass protocol could be considered. 3. Questionable 1.5 cm nodule in the right mid breast, top image. Correlation with mammography or ultrasound could be considered. us Jovanny Moulton DO G CT ORDERABLES Final Result * (ABNORMAL) Urinalysis Reflex if Indicated by Abnormal Results (12/01/2024 6:58 PM CDT) SPECIFIC GRAVITY 1.015 1.003 - 1.030 12/01/2024 7:46 PM CDT [facility] URINE PH 6.0 5.0 - 9.0 12/01/2024 7:46 PM CDT [facility] WBC ESTERASE Negative Negative 12/01/2024 7:46 PM CDT [facility] NITRITE Negative Negative 12/01/2024 7:46 PM CDT [facility] PROTEIN, RANDOM URINE 30 mg/dL(A) Negative 12/01/2024 7:46 PM CDT [facility] URINE GLUCOSE, QUAL Negative Negative 12/01/2024 7:46 PM CDT [facility] URINE KETONES Negative Negative 12/01/2024 7:46 PM CDT [facility] UROBILINOGEN Normal Normal mg/dL 12/01/2024 7:46 PM CDT [facility] URINE BLOOD 25 /uL(A) Negative flaquita/ul 12/01/2024 7:46 PM CDT [facility] URINALYSIS COLOR Yellow 12/02/19 7:46 PM CDT [facility] URINALYSIS CLARITY Slightly Cloudy 12/01/2024 7:46 PM CDT [facility] WBC (Urine) 0-5 Negative, 0-5 /hpf 12/01/2024 7:46 PM CDT [facility] URINE RBC'S 0-2 Negative, 0-2 /hpf 12/01/2024 7:46 PM CDT [facility] EPITHELIAL CELLS Large amount squamous /lpf 12/01/2024 7:46 PM CDT [facility] BACTERIA, URINE Moderate(A) Negative /hpf 12/01/2024 7:46 PM CDT [facility] Urine URINE SPECIMEN / Unknown Non-Phlebotomy Collection / Unknown 12/01/2024 6:58 PM CDT 12/01/2024 7:06 PM CDT us Jovanny Moulton DO URINE ORDERABLES Final Result [facility] [address] [facility] [place] [address] * Human Chorionic Gonadotropin Scrn Serum (12/01/2024 6:58 PM CDT) Pathologist [facility] PREG-HCG Negative Negative 12/01/2024 7:14 PM CDT [facility] Blood Venipuncture / Unknown 12/01/2024 6:58 PM CDT 12/01/2024 7:06 PM CDT us Jovanny Moulton DO CHEMISTRY ORDERABLES Fi nal Result [facility] [address] [place] [address] * RSV,SARS-COV-2,INFLUENZA A&B BY PCR (12/01/2024 6:30 PM CDT) Pathologist [facility] FLU A Negative Negative, Error 12/01/2024 7:20 PM CDT [facility] FLU B Negative Negative 12/01/2024 7:20 PM CDT [facility] RESP SYNC VIRUS Negative Negative 7:20 PM CDT [facility] SARSCOV2 NOT DETECTED (Reference Range for this test is Not Detected) 12/01/2024 7:20 PM CDT [facility] Comment:This test was perfor med by a Reverse Egg Smeller PCR Method. Nasopharyngeal NASOPHARYNGEAL STRUCTURE / Unknown Non-Phlebotomy Collection / Unknown 12/01/2024 6:30 PM CDT 12/01/2024 6:41 PM CDT us Jovanny Moulton DO MICROBIOLOGY - GENERAL ORDERABLES Final Result [facility] [address] [place] [address] * Lipase (12/01/2024 6:25 PM CDT) Pathologist [facility] LIPASE 9 8 - 78 U/L 12/01/2024 7:19 PM CDT [facility] Blood Venipuncture / Unknown 12/01/2024 6:25 PM CDT 12/01/2024 6:41 PM CDT us Jovanny Smith Kenney DO CHEMISTRY ORDERABLES Fi nal Result [facility] [address] [place] [address] from Last 3 Months Insurance [place] Care Teams Care Clinician Relationship Specialty Start Date End Date Aliya, August N, ROOFING LABORER, DANILO [address], [address] [place] [address] PCP - General Advanced Practice Nurse 12/16/24
--- OUTSIDE RECORDS SUMMARY | 2025-01-06 14:14 | XMS_ITS | Encounter Summary ---
Author Organization [facility] Address [address] [facility] [place] [address] Phone Care Team Providers Care Blanking Machine Operator Name Role Phone Provider, None Primary Care Provider Stephanie Pisano, August N PHLEBOTOMY DIRECTOR, END MAKER Primary Care Provider [phone] Encounter Details Date Type Department Care Team (Late st Contact Info) Description 12/05/2024 Results Follow-Up [facility] Oncologists [address] [place] [id number] Pina Blackmon, PHLEBOTOMY DIRECTOR, END MAKER [address] [place] [address] IRON,TRANSFERN,CALC. TIBC,%SAT, FERRITIN, VITAMIN B12, FOLIC ACID (FOLATE) Social History Tobacco Use Types Packs/Day Years Used Date Smoking Tobacco: Never Smokeless Tobacco: Never Alcohol Use Standard Drinks/Week Comments Never 0 (1 standard drink = 0.6 oz pur e alcohol) PHQ-2 Answer Date Recorded Total Score - Questions 1-9 0 06/0 08/2020 Social Connection and Isolation Panel Answer Date Recorded In a typical week, how many times do you talk on the phone with family, friends, or neighbors? More than three times a week 12/09/2024 How often do you get togethe r with friends or relatives? More than three times a week 12/09/2024 How often do you attend formerly [facility] or orthodox services? Never 12/09/2024 Do you belong to any clubs o r organizations such as mormonism groups, unions, fraternal or athletic groups, or [...] medical care, and heating? Very hard 12/09/2024 [facility] - Occupational Stress Questionnaire Answer Date Recorded [...] any time in the past 12 m onths, were you homeless or living in a intermediate (including now)? No 12/09/2024 [facility] Utilities Answer Date Recorded In the past 12 months has [facility] [employer], gas, oil, or water company threatened to shut off services in your home? Yes 12/09/2024 Comments No Sex and Gender Information Value Date Recorded Sex Assigned at Not on file Legal Sex Female 10:27 PM CDT Gender Identity Not on file Sexual Orientation Not on file documented as of this encounter Plan of Treatment Upcoming Encounters Date Type Department Care Team (Late st Contact Info) Description 01/31/2025 9:00 AM CDT Office Visit [facility] Medical [facility]etric[facility] Gyne[facility] [address] [place] [address] Casandra Wetzel APRN, END MAKER [address] [place] [address] 02/13/2025 2:20 PM CDT [facility] [address] [place] [address] Discharge Disposition: Discharged to home or Selfcare 02/20/2025 2:00 PM CDT Initial Consult [facility] Oncology Services [address] [place] [address] Comfort Metz [facility] [address] [place] [address] Discharge Disposition: Discharged to home or Selfcare 03/25/2025 3:00 PM CDT Office Visit [facility] Medical [facility] - Family Medicine [facility] [address] [place] [address] Charles Alvarado, PHLEBOTOMY DIRECTOR, END MAKER [address] [facility] [address] [place] [address] documented as of this encounter Visit Diagnoses Not on filedocumented in this encounter Additional Health Concerns Assessment Noted Time PHQ-9 Depression Total Score: 0 10/31/19 21 4:00 PM CDT documented as of this encounter Care Teams Blanking Machine Operator Relationship Specialty Start Date End Date Provider, None [place] PCP - General 12/01/24 12/15/24 Carina Pisano N, PHLEBOTOMY DIRECTOR, DANILO 2 [facility] [address] [place] [address] PCP - General Advanced Practice Nurse 12/16/24 documented as of this encounter
--- OUTSIDE RECORDS SUMMARY | 2025-01-06 14:14 | XMS_ITS | Clinical Summary ---
Author Organization [facility] [address] [facility] Address [address] [place] [address] Care Team Providers Care Lan Specialist Name Role Phone Unknown, Notinfile Primary Care Provider Unavail able Allergies Active Allergy Reactions Criticality Noted Date Comments Amoxicillin Vomiting Low 04/06/2019 Peanut Unknown 04/12/2019 Medications triamcinolone (KENALOG) 0.1 % cream Apply topically 2 (two) times a day Apply to area of irritation 2-3 times daily as directed. Collaborating physician Abel Arguello MD 30 g 1 4 Active Active Problems Problem Noted Date Diagnosed Date Irritant contact dermatitis 10/12/2023 Social History Tobacco Use Types Packs/Day Years Used Date Smoking Tobacco: Never Assessed Personal Safety Answer Date Recorded Have you ever been in or are you currently in a harmful physical or emotional relationship or is someone making you feel afraid or unsafe? Denies 10/12/2023 Comments Unknown Sex and Gender Information Value Date Recorded Sex Assigned at Not on file Legal Sex Female 8:56 AM TOOL CRIB CLERK Gender Identity Not on file Sexual Orientation Not on file Obstetrics History Last Filed Vital Signs Vital Sign Reading Time Taken Comments Blood Pressure 124/65 10/12/2023 7:10 PM CDT Pulse 102 10/12/2023 7:08 PM CDT Temperature 37.6 C (99.6 F) 10/12/2023 7:08 PM CDT Respiratory Rate 16 10/12/2023 7:08 PM CDT Oxygen Saturation 100% 10/12/2023 7:08 PM CDT Inhaled Oxygen Concentration - - Weight 70.3 kg (155 lb) 10/12/2023 7:08 PM CDT Height 144.8 cm (4' 9) 10/12/2023 7:08 PM CDT Body Mass Index 33.54 10/12/2023 7:08 PM CDT Plan of Treatment Health Maintenance Due Date Last Done Comments Cervical Cancer Screening 1985 Depression Screening 1985 Hepatitis C Screening 1985 DTaP/Tdap/Td Vaccine (1 - Tdap) 1996 Varicella Vaccines (1 of 2 - 13+ 2-dose series) 1998 Hepatitis B Screening 2003 Regular Well Visit/Exam 18-64 2003 HPV Vaccines (1 - 3-dose SCD M series) 2012 Influenza Vaccine (#1) 2025 Pneumococcal vaccine <65 Aged Out No longer eligible based on patient's age to complete this topic Insurance [facility] Care Teams Lan Specialist Relationship Specialty Start Date End Date Unknown, Notinfile PCP - General 08/16/22
[2025-01-06 14:22] LABS: EDUAAPPEAR Cloudy; EDUABILI Negative (Negative); EDUABLOOD Negative (Negative); EDUACOLOR1 Light/Pale; EDUAGLUCOSE Negative (Negative); EDUAKETONE Negative (Negative); EDUALEUKO Negative (Negative); EDUANITRATE Negative (Negative); EDUAPH 7.0; EDUAPROTEIN Negative (Negative); EDUASPGRAVITY 1.020; EDUAUROBILI 0.2
== END 2025-01-06 14:25 | disposition home or self-care (01) ==
PROVIDERS: Emergency Provider Nurse Practitioner
DX: R35.0 Frequency of micturition (principal); R30.0 Dysuria; R39.15 Urgency of urination
CPT/HCPCS: 81003; 87086; 99213; G0463